=== PATIENT | female | born 1985 | race Caucasian/White ===

== ENCOUNTER 2016-06-29 21:34 | Emergency (ER) | payer OTHER ==
[~2016-06-29 21:34] MED LIST: LEVOXINE; PROZ20 PO
[2016-06-30 00:37] VITALS: BP 116/73
== END 2016-06-30 00:37 | disposition home or self-care (01) ==
LOC: ED 21:34
DX: J06.9 Acute upper respiratory infection, unspecified (principal)
CPT/HCPCS: J1100

== ENCOUNTER 2016-12-08 09:41 | Emergency (ER) | payer OTHER ==
[~2016-12-08] VITALS: Ht 170.2 cm; Wt 80.4 kg
[2016-12-08 10:42] LABS: BASOPHIL % 0.4 % (0-2); PLATELET COUNT 195 x10^3mcL (130-400); RED CELL DISTRIBUTION WIDTH 13.9 % (11.5-14.5)
[2016-12-08 11:01] LABS: CALCIUM 8.7 mg/dL (8.5-10.1); CARBON DIOXIDE 27.6 mmol/L (21-32); CHLORIDE SERUM 103 mmol/L (98-107); CREATININE SERUM 0.8 mg/dL (0.6-1.0); GFR1 > 60 mL/min; GLUCOSE SERUM 90 mg/dL (74-106); POTASSIUM SERUM 3.6 mmol/L (3.5-5.1); SODIUM SERUM 137 mmol/L (136-145)
[2016-12-08 11:14] LABS: T4(THYROXINE) 8.1 ug/dL (4.7-13.3)
[2016-12-08 11:58] LABS: microscopic required? YES; urine erythrocyte TRACE (NEGATIVE)
[2016-12-08 12:31] VITALS: BP 132/71
== END 2016-12-08 12:31 | disposition home or self-care (01) ==
LOC: ED 09:41
PROVIDERS: Emergency Medicine
DX: O20.0 Threatened abortion (principal); O23.41 Unspecified infection of urinary tract in pregnancy, first trimester; N76.0 Acute vaginitis; E03.9 Hypothyroidism, unspecified; Z3A.08 8 weeks gestation of pregnancy; Z79.899 Other long term (current) drug therapy
CPT/HCPCS: 36415; 87491; 87591; J0696

== ENCOUNTER 2017-04-16 21:53 | Emergency (ER) | payer OTHER ==
[~2017-04-16] VITALS: Ht 170.2 cm; Wt 82.7 kg
[2017-04-16 22:17] VITALS: Ht 170.2 cm; Wt 82.7 kg
[2017-04-17 00:10] VITALS: BP 123/69
== END 2017-04-17 00:10 | disposition home or self-care (01) ==
LOC: ED 21:53
DX: B34.9 Viral infection, unspecified (principal); E03.9 Hypothyroidism, unspecified
CPT/HCPCS: J1885

== ENCOUNTER 2018-11-24 23:32 | Emergency (ER) | payer OTHER ==
[~2018-11-24] VITALS: Ht 170.2 cm; Wt 82.1 kg
[2018-11-24 23:43] VITALS: Ht 170.2 cm; Wt 82.1 kg
[2018-11-25 00:55] LABS: microscopic required? YES; urine erythrocyte 1+ (NEGATIVE)
[2018-11-25 02:43] VITALS: BP 127/78
== END 2018-11-25 02:43 | disposition home or self-care (01) ==
LOC: ED 23:32
PROVIDERS: Emergency Medicine
DX: Z11.3 Encounter for screening for infections with a predominantly sexual mode of transmission (principal); E03.9 Hypothyroidism, unspecified; Z98.890 Other specified postprocedural states
CPT/HCPCS: 36415; 87491; 87591; 90715; J0696

== ENCOUNTER 2019-05-19 16:40 | Emergency (ER) | payer OTHER ==
[~2019-05-19] VITALS: Ht 170.2 cm; Wt 81.6 kg
[2019-05-19 16:52] VITALS: Ht 170.2 cm; Wt 81.6 kg
[2019-05-19 18:33] VITALS: BP 120/62
== END 2019-05-19 18:33 | disposition home or self-care (01) ==
LOC: ED 16:40
DX: M54.10 Radiculopathy, site unspecified (principal); E03.9 Hypothyroidism, unspecified; Z98.890 Other specified postprocedural states